=== PATIENT | male | born 1980 | race Caucasian/White ===

== ENCOUNTER 2021-02-10 14:24 | Emergency (ER) | payer OTHER, MEDICAID ==
[2021-02-10 15:09] LABS: HEMOGLOBIN 14.8 gm/dl (14.0-17.5); RED BLOOD COUNT 5.13 M/UL (4.20-5.50); WHITE BLOOD COUNT 12.6 K/UL (4.5-11.0)
[2021-02-10 15:36] LABS: BUN/CREATININE RATIO 8 (0-10)
== END 2021-02-10 23:41 | disposition short-term general hospital (02) ==
LOC: ER1 14:24
PROVIDERS: Emergency Medicine
DX: S82.832A Other fracture of upper and lower end of left fibula, initial encounter for closed fracture (principal); V49.40XA Driver injured in collision with unspecified motor vehicles in traffic accident, initial encounter; Y92.410 Unspecified street and highway as the place of occurrence of the external cause; F17.200 Nicotine dependence, unspecified, uncomplicated; Z20.822 Contact with and (suspected) exposure to COVID-19
CPT/HCPCS: 25605; 70450; 70486; 71045; 71260; 72125; 72170; 73090; 73100; 73590; 80053; 83605; 85025; 85610; 85730; 86900; 86901; 90471; 90715; 96374; 99152; 99285; G0480; J2270; J2405; J2704; J3480; Q9967; U0002